=== PATIENT | female | born 1995 | race Caucasian/White ===

== ENCOUNTER 2024-02-17 16:59 | Emergency (ER) | payer OTHER ==
[~2024-02-17] VITALS: Ht 162.6 cm; Wt 79.8 kg
[2024-02-17] MEDS ORDERED: ACETAMINOPHEN 325 MG TAB PO ONE (17:20)
[2024-02-17 17:21] VITALS: BP 123/66; PULSE 119; RESP 22; TEMP 102.6; O2SAT 99
[2024-02-17 17:55] VITALS: BP 97/47; PULSE 101; RESP 20; TEMP 102.6; O2SAT 97
[2024-02-17] MEDS: ACETAMINOPHEN EXTRA STRENGTH 500 MG TAB PO ONE (18:00)
[2024-02-17] MEDS: LIDOCAINE MPF 1% 10 MG/ML VIAL INJ ONE (19:10)
[2024-02-17] MEDS ORDERED: NAPR-1704 PO (19:34)
[2024-02-17] MEDS ORDERED: CEPH-588 PO (19:34)
== END 2024-02-17 19:49 | disposition home or self-care (01) ==
LOC: MED 16:59
DX: L02.412 Cutaneous abscess of left axilla (principal); J02.9 Acute pharyngitis, unspecified; R51.9 Headache, unspecified; F17.200 Nicotine dependence, unspecified, uncomplicated; Z79.899 Other long term (current) drug therapy
CPT/HCPCS: 10060; 87081; 99284; J2001